=== PATIENT | male | born 2000 ===

== ENCOUNTER 2023-01-22 12:21 | Emergency (ER) | payer MEDICAID, OTHER | END 2023-01-22 13:17 | disposition home or self-care (01) | LOC: ERS 12:21 | DX: Z02.79 Encounter for issue of other medical certificate (principal) | CPT/HCPCS: 99282 ==

== ENCOUNTER 2023-02-12 10:57 | Emergency (ER) | payer OTHER ==
[2023-02-12 11:51] LABS: #Eosinphils 0.1 thou/uL (0.0-0.7); #Monocytes 0.6 thou/uL (0.11-0.59); #Neutrophils 4.3 thou/uL (1.40-6.50); %Basophils 0.6 % (0.0-1.0); %Eosinophils 1.6 % (0.0-10.0); %Lymphocytes 26.3 % (21.0-51.0); %Monocytes 8.9 % (0.0-10.0); %Neutrophils 61.3 % (42.0-75.0); Hematocrit 48.5 % (42.0-52.0); Hemoglobin 15.3 g/dL (14.0-18.0); Mean Corpuscular HGB CONC 31.5 g/dL (32.0-36.0); Mean Corpuscular Hemoglobin 28.5 pg (27.0-31.0); Mean Corpuscular Volume 90.3 fl (78.0-98.0); Mean Platelet Volume 9.6 fL (7.4-10.4); Platelet Count 230 10x3/uL (130-400); Red Blood Cell (RBC) Count 5.37 mill/uL (4.70-6.10)
[2023-02-12 12:18] LABS: Troponin I Less than 0.010 ng/mL (< 0.028)
[2023-02-12 12:30] LABS: ALT (SGPT) 62 U/L (8-55); AST (SGOT) 36 U/L (5-34); Albumin 4.7 g/dL (3.5-5.0); Alkaline Phosphatase 153 U/L (40-110); Anion Gap 16 mmol/L (10-20); BUN (Urea Nitrogen) 13 mg/dL (8.9-20.6); Bilirubin, Total 0.3 mg/dL (0.2-1.2); Calc. Creatinine Clearance 0 mL/min (70-130); Calcium 9.7 mg/dL (7.8-10.44); Carbon Dioxide 23 mmol/L (22-29); Chloride 105 mmol/L (98-107); Estimated GFR 107; Globulin 3.3 g/dL (2.4-3.5); Glucose 91 mg/dL (70-105); Potassium 4.5 mmol/L (3.5-5.1); Sodium 139 mmol/L (136-145)
== END 2023-02-12 12:41 | disposition left against medical advice (07) ==
LOC: ERS 10:57
DX: Z53.21 Procedure and treatment not carried out due to patient leaving prior to being seen by health care provider (principal)
CPT/HCPCS: 36415; 71045; 80053; 84484; 85025; 93005

== ENCOUNTER 2023-02-12 14:40 | Emergency (ER) | payer MEDICAID, OTHER ==
[2023-02-12 17:37] LABS: Troponin I Less than 0.010 ng/mL (< 0.028)
== END 2023-02-12 18:05 | disposition home or self-care (01) ==
LOC: ERS 14:40
DX: I10 Essential (primary) hypertension (principal); R07.9 Chest pain, unspecified
CPT/HCPCS: 36415; 71045; 80053; 84484; 85025; 93005; 99283

== ENCOUNTER 2023-03-10 10:26 | Emergency (ER) | payer MEDICAID, OTHER ==
[2023-03-10] MEDS ORDERED: Acetaminophen 325 MG TAB ONE (10:54)
[2023-03-10 11:00] LABS: Hematocrit 50.1 % (42.0-52.0); Hemoglobin 16.5 g/dL (14.0-18.0); Manual Diff?? YES; Mean Corpuscular HGB CONC 32.9 g/dL (32.0-36.0); Mean Corpuscular Hemoglobin 28.8 pg (27.0-31.0); Mean Corpuscular Volume 87.4 fl (78.0-98.0); Mean Platelet Volume 9.6 fL (7.4-10.4); Platelet Count 210 10x3/uL (130-400); RBC Distribution Width 12.9 % (11.5-14.5); Red Blood Cell (RBC) Count 5.73 mill/uL (4.70-6.10); White Blood Cell (WBC) Count 5.3 10x3/uL (4.8-10.8)
[2023-03-10 11:05] LABS: Delete Auto Diff?? YES
[2023-03-10 11:28] LABS: Band 10 % (5-11); CellaVision Operator ID lab.dlt; Lymphocytes 7 % (21-51); Monocytes 20 % (0-10); Neutrophil 62 % (42-75); Platelet Adequacy Comment Platelets Normal; Reactive Lymphocytes 1 % (0-10); Total Cell Count 100
[2023-03-10 11:31] LABS: ALT (SGPT) 83 U/L (8-55); AST (SGOT) 52 U/L (5-34); Albumin 4.5 g/dL (3.5-5.0); Alkaline Phosphatase 134 U/L (40-110); Anion Gap 15 mmol/L (10-20); BUN (Urea Nitrogen) 13 mg/dL (8.9-20.6); Bilirubin, Total 0.3 mg/dL (0.2-1.2); Calc. Creatinine Clearance 0 mL/min (70-130); Calcium 9.8 mg/dL (7.8-10.44); Carbon Dioxide 25 mmol/L (22-29); Chloride 97 mmol/L (98-107); Estimated GFR 87; Globulin 3.7 g/dL (2.4-3.5); Glucose 114 mg/dL (70-105); Lipase 18 U/L (8-78); Magnesium 1.8 mg/dL (1.6-2.6); Potassium 3.5 mmol/L (3.5-5.1); Protein, Total 8.2 g/dL (6.0-8.3); Sodium 133 mmol/L (136-145)
[2023-03-10 11:32] LABS: Troponin I Less than 0.010 ng/mL (< 0.028)
[2023-03-10] MEDS ORDERED: Ibuprofen 800 MG TAB ONE (14:10)
[2023-03-10 15:15] LABS: SARS-CoV-2 NAA Rapid Test Not Detected (NotDetected)
== END 2023-03-10 15:04 | disposition home or self-care (01) ==
LOC: ERS 10:26
DX: B34.9 Viral infection, unspecified (principal); R07.81 Pleurodynia; R06.02 Shortness of breath; I10 Essential (primary) hypertension; Z20.822 Contact with and (suspected) exposure to COVID-19
CPT/HCPCS: 71045; 76705; 80053; 83690; 83735; 83880; 84484; 85025; 85379; 93005; 96360; 96361